=== PATIENT | female | born 1985 | race Caucasian/White ===

== ENCOUNTER 2017-08-24 17:22 | Emergency (ER) | payer MEDICAID ==
[~2017-08-24] VITALS: Ht 167.6 cm; Wt 80.5 kg
[2017-08-24 17:48] VITALS: Ht 167.6 cm; Wt 80.5 kg
[2017-08-24 19:13] VITALS: BP 166/71
== END 2017-08-24 19:13 | disposition home or self-care (01) ==
LOC: ED 17:22
DX: L50.9 Urticaria, unspecified (principal)
CPT/HCPCS: J1100; J1200

== ENCOUNTER 2018-05-02 11:47 | Emergency (ER) | payer MEDICAID ==
[~2018-05-02] VITALS: Ht 165.1 cm; Wt 80.3 kg
[2018-05-02 11:51] VITALS: Ht 165.1 cm; Wt 80.3 kg
[2018-05-02 14:51] VITALS: BP 144/90
== END 2018-05-02 14:51 | disposition home or self-care (01) ==
LOC: ED 11:47
DX: J06.9 Acute upper respiratory infection, unspecified (principal); I10 Essential (primary) hypertension
CPT/HCPCS: J7512; J7620; Q0092